=== PATIENT | female | born 2000 | race Caucasian/White ===

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

== ENCOUNTER 2020-05-24 11:06 | Emergency (ER) | payer MEDICAID, SELFPAY ==
[2020-05-24 11:12] VITALS: BP 118/80; PULSE 97; RESP 16; TEMP 36.8; O2SAT 98; BMI 33.6
--- NOTE | 2020-05-24 11:25 | W.ED.EAR ---
HPI - Ear Problem General: Chief complaint: Ear Stated complaint: Right Ear Pain Time Seen by Provider: 05/24/20 11:14 Source: patient Mode of arrival: ambulatory Limitations: no limitations History of Present Illness: HPI Narrative: 20-year-old female states she been having right ear pain over the last 2 days. States it is sharp pain she rates a 8 out of 10. Denies any hearing problems. Denies any worsening improving factors. Denies any fever. Denies any injury MD Complaint: ear pain Duration: constant Severity: severe Relieving factors: nothing Exacerbating factors: nothing Associated symptoms: Reports ear or mastoid pain; Denies fever(s), headache(s) or neck pain Review of Systems Const: Denies: fever(s), chills, body aches or change in appetite Eyes: Denies: blurry vision or eye discomfort ENMT: Reports: ear or mastoid pain Card: Denies: chest pain Resp: Denies: dyspnea GI: Denies: abdominal pain, nausea, vomiting or diarrhea : Denies: dysuria Musc: Denies: neck pain or back pain Skin/Breast: Denies: rash Neuro: Denies: headache(s) Psych: Denies: depression Mikey/Lymph: Denies: easy bruising All/Imm: Denies: urticaria PFSH ED PFSH: Social History Current gender identity: Female Female Reproductive History: Date of last menstrual period: 04/25/20 Physical Exam Const: COMMON NORMALS: no acute distress, patient oriented x3 and healthy appearing HENMT: COMMON NORMALS: normocephalic and atraumatic HEAD & SCALP: normocephalic and atraumatic OTHER: Erythema to right eardrum with bulla Eye: COMMON NORMALS: Equal, round and reactive pupils present and EOMs intact bilaterally PUPIL: Yes Equal, round and reactive pupils present Neck/C-Spine: COMMON NORMALS: full ROM and supple Chest: COMMONS NORMALS: normal inspection of the chest and normal palpation of entire chest wall Resp: COMMON NORMALS: normal respiratory effort, No retractions, No use of accessory muscles and clear to auscultation bilaterally AUSCULTATION: clear to auscultation bilaterally Cardio: COMMON NORMALS: regular rate, regular rhythm and No murmurs present (Cardio) RATE: regular rate RHYTHM: regular rhythm GI: COMMON NORMALS: Normal to inspection, nondistended, normoactive bowel sounds present, Soft to palpation, non-tender and no masses PALPATION: Yes Soft to palpation Extremity: COMMON NORMALS: normal to inspection and full ROM Neuro: COMMON NORMALS: patient oriented x3, moves all extremities and no focal motor deficits Psych: COMMON NORMALS: mental status grossly normal, Normal thought process present and cooperative THOUGHT PROCESS: Normal thought process present Skin: COMMON NORMALS: no rashes or lesions noted and no wounds GENERAL SKIN EXAM: no rashes or lesions noted Course Vital Signs: Vital signs: Vital Signs Temperature 98.2 F 05/24/20 11:12 Pulse Rate 97 05/24/20 11:12 Respiratory Rate 16 05/24/20 11:12 Blood Pressure 118/80 05/24/20 11:12 Pulse Oximetry 98 05/24/20 11:12 MDM - Ear MDM Narrative: Medical decision making narrative: Patient presents with otitis media with the appearance of bullous myringitis. We will place her on Z-Gary. She is stable for discharge is return if worsening. Discharge Plan Discharge Patient Disposition: Home Clinical Impression: Otitis media Qualifiers: Otitis media type: unspecified Chronicity: acute Qualified Code(s): H66.90 - Otitis media, unspecified, unspecified ear Condition: Stable Prescriptions: New Naprosyn 500 mg tablet 500 mg PO BID PRN (Reason: pain) Qty: 20 RF: 0 Zithromax Z-Gary 250 mg tablet See Rx Instructions PO .COMPLEX Qty: 6 RF: 0 No Action ranitidine HCl [Zantac] 150 mg Tablet 150 mg PO BID RF: 0 28-800 mg-mcg Tablet 1 tab PO DAILY RF: 0 Discharge Orders: Discharge Order (Routine); Ordered 05/24/20 Ordered By: Enrico Epps Referrals: Markos Naik MD [Primary Care Provider] - 1-3 days Discharge Diet: Advance as tolerated Discharge Activity: Resume usual activity Patient Instructions: Otitis Media (ED) Coding Level of Care Code ED Machine Shorthand Reporter for Jennifer Sandoval
== END 2020-05-24 11:43 | disposition home or self-care (01) ==
LOC: ER 11:27
PROVIDERS: Emergency Provider Emergency Medicine; PCP Family Medicine
DX: H66.90 Otitis media, unspecified, unspecified ear (principal)
CPT/HCPCS: 12345; 99281

== ENCOUNTER → 2020-10-02 15:35 | Outpatient (BNVA) | payer BC, MEDICAID, SELFPAY | PROVIDERS: PCP Family Medicine; Visit Provider Nurse Practitioner Women's Health | DX: Z20.2 Contact with and (suspected) exposure to infections with a predominantly sexual mode of transmission (principal); N76.0 Acute vaginitis; B96.89 Other specified bacterial agents as the cause of diseases classified elsewhere; R63.5 Abnormal weight gain; Z30.45 Encounter for surveillance of transdermal patch hormonal contraceptive device | CPT/HCPCS: 86592; 86803; 87491; 87591; 87661; 87806 ==

== ENCOUNTER 2021-11-28 20:19 | Emergency (ER) | payer BC, MEDICAID, SELFPAY ==
[2021-11-28 20:40] VITALS: BP 114/75; PULSE 74; RESP 14; TEMP 36.6; O2SAT 99
[2021-11-28 21:12] LABS: Add Urine Microscopic? YES; Bilirubin Urine Neg (Negative); Blood Urine Neg (Negative); Glucose Urine UA Norm (Normal); Ketones Urine Negative (Negative); Leukocyte Esterase Urine 1+ (Negative); Nitrate Urine Negative (Negative); Protein Urine Neg (Negative); Specific Gravity, Urine 1.025 (1.005-1.030); Urine Appearance Clear (CLEAR); Urine Color Yellow (Yellow); Urobilinogen Urine Norm (Negative); pH Urine 6 (5-7)
[2021-11-28 21:15] LABS: Add Urine Culture? No; Bacteria Urine 2+ /hpf; RBC Urine 0-4 /hpf (0-2)
[2021-11-28 21:29] LABS: HCG Qualitative Urine. Negative (Negative)
--- NOTE | 2021-11-28 21:53 | ED_ITS ---
HPI - Female Genitourinary General: Chief complaint: Urogenital-Female Stated complaint: UTI Time Seen by Provider: 11/28/21 21:50 Source: patient Mode of arrival: ambulatory Limitations: no limitations History of Present Illness: Part 1-year-old female states that over the last day she has been having burning with urination. States she has some mild abdominal cramping but no pain she states she only has pain when she urinates states that it is a moderate burning. She denies any vaginal discharge or bleeding. Denies any fevers denies any vomiting or diarrhea. Associated symptoms: Deny abdominal pain, headache(s) or nausea Date of Last Menstrual Period: 04/25/20 Review of Systems Const: Denies: fever(s), chills, body aches or change in appetite Eyes: Denies: blurry vision or eye discomfort ENMT: Denies: throat pain or dental pain Card: Denies: chest pain Resp: Denies: dyspnea GI: Denies: abdominal pain, nausea, vomiting or diarrhea : Reports: dysuria Musc: Denies: neck pain or back pain Skin/Breast: Denies: rash Neuro: Denies: headache(s) Psych: Denies: depression Mikey/Lymph: Denies: easy bruising All/Imm: Denies: urticaria PFSH ED PFSH: Medical History No pertinent past medical history neghx: htn,dm,thyroid,dvt/pe PCP: Dr. Naik Surgical History No pertinent past surgical history Family History Grandmother Breast cancer Paternal--dx age late 50's Family/Other Diabetes Maternal and Paternal side in general Mother Heart disease Father Thyroid disease thyroid cancer Denies family history of Colon cancer Ovarian cancer Hypercholesteremia Hypertension Uterine cancer Stroke Female Reproductive History: Date of last menstrual period: 04/25/20 Physical Exam Const: COMMON NORMALS: no acute distress, patient oriented x3 and healthy appearing HENMT: COMMON NORMALS: normocephalic and atraumatic HEAD & SCALP: normocephalic and atraumatic Eye: COMMON NORMALS: Equal, round and reactive pupils present and EOMs intact bilaterally PUPIL: Yes Equal, round and reactive pupils present Neck/C-Spine: COMMON NORMALS: full ROM and supple Chest: COMMONS NORMALS: normal inspection of the chest and normal palpation of entire chest wall Resp: COMMON NORMALS: normal respiratory effort, No retractions, No use of accessory muscles and clear to auscultation bilaterally AUSCULTATION: clear to auscultation bilaterally Cardio: COMMON NORMALS: regular rate, regular rhythm and No murmurs present (Cardio) RATE: regular rate RHYTHM: regular rhythm GI: COMMON NORMALS: Normal to inspection, nondistended, normoactive bowel sounds present, Soft to palpation, non-tender and no masses PALPATION: Yes Soft to palpation Extremity: COMMON NORMALS: normal to inspection and full ROM Neuro: COMMON NORMALS: patient oriented x3, moves all extremities and no focal motor deficits Psych: COMMON NORMALS: mental status grossly normal, Normal thought process present and cooperative THOUGHT PROCESS: Normal thought process present Skin: COMMON NORMALS: no rashes or lesions noted and no wounds GENERAL SKIN EXAM: no rashes or lesions noted Course Vital Signs: Vital signs: Vital Signs Temperature 97.9 F 11/28/21 20:40 Pulse Rate 74 11/28/21 20:40 Respiratory Rate 14 11/28/21 20:40 Blood Pressure 114/75 11/28/21 20:40 Pulse Oximetry 99 11/28/21 20:40 MDM - Female Medical Decision Making Patient presents here with burning with urination urine here shows likely UTI will start on Keflex she is stable for discharge return if worsening she has no abdominal pain on exam denies any vaginal discharge. Lab Data Laboratory Results HCG, Qual Negative (Negative) 11/28/21 20:45 Urine Color Yellow (Yellow) 11/28/21 20:45 Urine Appearance Clear (CLEAR) 11/28/21 20:45 Urine pH 6 (5-7) 11/28/21 20:45 Ur Specific [place] 1.025 (1.005-1.030) 11/28/21 20:45 Urine Protein Neg (Negative) 11/28/21 20:45 Urine Glucose (UA) Norm (Normal) 11/28/21 20:45 Urine Ketones Negative (Negative) 11/28/21 20:45 Urine Blood Neg (Negative) 11/28/21 20:45 Urine Nitrate Negative (Negative) 11/28/21 20:45 Urine Bilirubin Neg (Negative) 11/28/21 20:45 Urine Urobilinogen Norm mg/dL (Negative) 11/28/21 20:45 Ur Leukocyte Esterase 1+ (Negative) H 11/28/21 20:45 Urine RBC 0-4 /hpf (0-2) H 11/28/21 20:45 Urine WBC 5-10 /hpf (0-5) H 11/28/21 20:45 Ur Squamous Epith Cells 10-15 /hpf (0-5) H 11/28/21 20:45 Amorphous Sediment Not Reportable 11/28/21 20:45 Urine Bacteria 2+ /hpf (NONE) H 11/28/21 20:45 Discharge Plan Discharge Patient Disposition: Home Clinical Impression: Acute cystitis Qualifiers: Hematuria presence: without hematuria Qualified Code(s): N30.00 - Acute cystitis without hematuria Condition: Stable Prescriptions: New cephalexin 500 mg capsule 500 mg PO TID 7 Days Qty: 21 0RF No Action Xulane 150-35 mcg/24 hr patch weekly 1 patch transdermal Q7D 0RF Rx Instructions: apply once weekly for 3 weeks of a 4-week cycle metronidazole 500 mg tablet 500 mg PO BID Qty: 14 0RF Discharge Orders: Discharge ED (Routine); Ordered 11/28/21 Ordered By: Enrico Epps Referrals: Markos Naik MD [Primary Care Provider] - 1-3 days Discharge Diet: Advance as tolerated Discharge Activity: Resume usual activity Patient Instructions: Urinary Tract Infection in Women (ED) Coding Level of Care Code ED Stapler Machine for Jennifer Sandoval
== END 2021-11-28 22:05 | disposition home or self-care (01) ==
PROVIDERS: Emergency Provider Emergency Medicine; PCP Family Medicine
DX: N30.00 Acute cystitis without hematuria (principal)
CPT/HCPCS: 81001; 81025; 99282

== ENCOUNTER → 2022-08-18 16:33 | Outpatient (BNVA) | payer BC, MEDICAID, SELFPAY | PROVIDERS: PCP Family Medicine; Visit Provider Registered Nurse Neonatal Intensive Care | DX: J02.9 Acute pharyngitis, unspecified (principal) | CPT/HCPCS: 87071; 87880 ==

== ENCOUNTER → 2023-07-19 13:17 | Outpatient (BNVA) | payer BC, MEDICAID, SELFPAY | PROVIDERS: PCP Family Medicine; Visit Provider Registered Nurse Neonatal Intensive Care | DX: R05.9 Cough, unspecified (principal) | CPT/HCPCS: 87400 ==

== ENCOUNTER → 2024-02-07 14:59 | Outpatient (BNVA) | payer BC, MEDICAID, SELFPAY | PROVIDERS: PCP Family Medicine; Visit Provider Family Medicine | DX: R53.83 Other fatigue (principal) | CPT/HCPCS: 80053; 82306; 82607; 82728; 83550; 84439; 84443; 85025 ==

== ENCOUNTER → 2024-05-04 16:37 | Outpatient (BNVA) | payer BC, MEDICAID, SELFPAY | PROVIDERS: PCP Family Medicine; Visit Provider Registered Nurse Neonatal Intensive Care | DX: J02.9 Acute pharyngitis, unspecified (principal) | CPT/HCPCS: 87880 ==

== ENCOUNTER → 2024-06-13 13:34 | Outpatient (BNVA) | payer BC, MEDICAID, SELFPAY | PROVIDERS: PCP Family Medicine; Visit Provider Family Medicine | DX: Z32.00 Encounter for pregnancy test, result unknown (principal); R53.83 Other fatigue | CPT/HCPCS: 83540; 84702 ==

== ENCOUNTER → 2024-07-19 13:47 | Outpatient (BNVA) | payer BC, MEDICAID, SELFPAY | PROVIDERS: PCP Family Medicine; Visit Provider Nurse Practitioner Women's Health | DX: Z36.9 Encounter for antenatal screening, unspecified (principal); O46.8X1 Other antepartum hemorrhage, first trimester | CPT/HCPCS: 76801; 81025 ==

== ENCOUNTER → 2024-07-28 07:55 | Outpatient (BNVA) | payer BC, MEDICAID, SELFPAY | PROVIDERS: PCP Family Medicine; Visit Provider Nurse Practitioner Women's Health | DX: Z34.90 Encounter for supervision of normal pregnancy, unspecified, unspecified trimester (principal) | CPT/HCPCS: 80307; 83036; 84315; 85025; 86592; 86762; 86803; 86850; 86900; 87086; 87340; 87806 ==

== ENCOUNTER → 2024-08-03 13:03 | Outpatient (BNVA) | payer BC, MEDICAID, SELFPAY | PROVIDERS: PCP Family Medicine; Visit Provider Obstetrics & Gynecology | DX: Z34.90 Encounter for supervision of normal pregnancy, unspecified, unspecified trimester (principal); Z34.80 Encounter for supervision of other normal pregnancy, unspecified trimester | CPT/HCPCS: 84315; 87491; 87591; 87624; 87661 ==

== ENCOUNTER → 2024-08-13 15:40 | Outpatient (BNVA) | payer BC, MEDICAID, SELFPAY | PROVIDERS: PCP Family Medicine; Visit Provider Registered Nurse Neonatal Intensive Care | DX: R05.9 Cough, unspecified (principal) | CPT/HCPCS: 87400 ==

== ENCOUNTER → 2024-08-24 13:20 | Outpatient (BNVA) | payer BC, MEDICAID, SELFPAY | PROVIDERS: PCP Family Medicine; Visit Provider Nurse Practitioner Women's Health | DX: Z34.80 Encounter for supervision of other normal pregnancy, unspecified trimester (principal) | CPT/HCPCS: 76815; 82105; 84315 ==

== ENCOUNTER → 2024-10-09 10:29 | Outpatient (BNVA) | payer BC, MEDICAID, SELFPAY | PROVIDERS: PCP Family Medicine; Visit Provider Nurse Practitioner Women's Health | DX: Z34.82 Encounter for supervision of other normal pregnancy, second trimester (principal) | CPT/HCPCS: 84315 ==

== ENCOUNTER → 2024-11-03 08:14 | Outpatient (BNVA) | payer BC, MEDICAID, SELFPAY | PROVIDERS: PCP Family Medicine; Visit Provider Nurse Practitioner Women's Health | DX: Z34.80 Encounter for supervision of other normal pregnancy, unspecified trimester (principal); Z34.90 Encounter for supervision of normal pregnancy, unspecified, unspecified trimester | CPT/HCPCS: 82950; 84315 ==

== ENCOUNTER → 2024-11-21 08:36 | Outpatient (BNVA) | payer BC, MEDICAID, SELFPAY | PROVIDERS: PCP Family Medicine; Visit Provider Nurse Practitioner Women's Health | DX: Z34.80 Encounter for supervision of other normal pregnancy, unspecified trimester (principal); Z34.90 Encounter for supervision of normal pregnancy, unspecified, unspecified trimester | CPT/HCPCS: 84315; 85025 ==

== ENCOUNTER → 2024-12-05 08:11 | Outpatient (BNVA) | payer BC, MEDICAID, SELFPAY | PROVIDERS: PCP Family Medicine; Visit Provider Nurse Practitioner Women's Health | DX: Z34.80 Encounter for supervision of other normal pregnancy, unspecified trimester (principal) | CPT/HCPCS: 84315 ==

== ENCOUNTER → 2024-12-20 08:22 | Outpatient (BNVA) | payer BC, MEDICAID, SELFPAY | PROVIDERS: PCP Family Medicine; Visit Provider Nurse Practitioner Women's Health | DX: Z34.80 Encounter for supervision of other normal pregnancy, unspecified trimester (principal) | CPT/HCPCS: 84315 ==

== ENCOUNTER → 2025-01-03 08:04 | Outpatient (BNVA) | payer BC, MEDICAID, SELFPAY | PROVIDERS: PCP Family Medicine; Visit Provider Nurse Practitioner Women's Health | DX: Z34.80 Encounter for supervision of other normal pregnancy, unspecified trimester (principal) | CPT/HCPCS: 84315 ==

== ENCOUNTER 2025-01-10 12:36 | Outpatient (CLI) | payer BC, MEDICAID, SELFPAY ==
[2025-01-10] MEDS: betamethasone susp 6 mg/mL 5 mL IM (12:56)
--- NOTE | 2025-01-10 12:58 | PC.NURSE ---
PT HERE FOR 2ND BETHAMETHASONE INJECTION WAS SENT HOME FROM [facility] IN [facility] WITH A VIAL AND WE SENT IT TO OUR PHARMACY TO BE VERIFIED AND THEN MED GIVEN AND PATIENT DISCHARGED HOME.
== END 2025-01-10 12:55 | disposition home or self-care (01) ==
PROVIDERS: PCP Family Medicine; Visit Provider Obstetrics & Gynecology
DX: O60.00 Preterm labor without delivery, unspecified trimester (principal); Z3A.00 Weeks of gestation of pregnancy not specified
CPT/HCPCS: 96372

== ENCOUNTER → 2025-01-17 10:23 | Outpatient (BNVA) | payer BC, MEDICAID, SELFPAY | PROVIDERS: PCP Family Medicine; Visit Provider Nurse Practitioner Women's Health | DX: Z34.80 Encounter for supervision of other normal pregnancy, unspecified trimester (principal) | CPT/HCPCS: 84315; 87081 ==

== ENCOUNTER → 2025-03-21 12:58 | Outpatient (BNVA) | payer BC, MEDICAID, SELFPAY | PROVIDERS: PCP Family Medicine; Visit Provider Nurse Practitioner Women's Health | DX: R87.610 Atypical squamous cells of undetermined significance on cytologic smear of cervix (ASC-US) (principal); R87.810 Cervical high risk human papillomavirus (HPV) DNA test positive | CPT/HCPCS: 87624 ==

== ENCOUNTER → 2025-07-02 16:18 | Outpatient (BNVA) | payer BC, SELFPAY | PROVIDERS: PCP Family Medicine; Visit Provider Family Medicine | DX: E55.9 Vitamin D deficiency, unspecified (principal) | CPT/HCPCS: 80053; 82306 ==